=== PATIENT | male | born 1970 | race Caucasian/White ===

== ENCOUNTER 2018-03-11 17:43 | Inpatient (IN) | payer OTHER ==
[~2018-03-11] VITALS: Ht 177.8 cm; Wt 97.8 kg
--- NOTE | ~2018-03-11 | EKG ---
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 : 1970 Requested By: Solis Mendiola Order Number: [id number] MD: Aristides Boyle Measurements Intervals [place] Rate: 105 P: 31 GA: 148 QRS: 74 QRSD: 97 T: 23 QT: 341 QTc: 451 Interpretive Statements Sinus tachycardia Nonspecific ST segment abnormality No previous ECG available for comparison Electronically Signed On 03-12-2018 9:45:29 TYPING SECRETARY by Aristides Boyle [email or web address] <ELECTRONICALLY SIGNED> By: Aristides Boyle MD, [facility] 03/12/18 0945 [id number] Aristidse Boyle MD, FACC /EPI
[~2018-03-11 17:43] MED LIST: IBUPROFEN 800800 M1 PO; METFORMIN HCL500 MG PO; NORVASC10 MG PO; TRAZODONE HCL100 MG PO; ZESTRIL5 MG PO; ZOFRAN ODT4 MG PO; ZPAK PO
[2018-03-11 17:47] VITALS: BP 70/40
[2018-03-11 18:14] LABS: HEMATOCRIT 33.8 % (42.0-52.0); HEMOGLOBIN 11.8 gm/dL (14.0-18.0); MCHC 34.8 g/dL (28.0-37.0); MCV 92.1 fL (80.0-100.0); PLATELET COUNT 341 thou/uL (150-400); RBC 3.67 mil/uL (4.50-6.00); RDW 14.1 % (10.5-14.5); WBC 13.1 thou/uL (4.0-11.0)
[2018-03-11 18:22] LABS: ANION GAP 13 mmol/L (7-16); BUN 48 mg/dL (7-18); CALCIUM 9.5 mg/dL (8.5-10.1); CHLORIDE 98 mmol/L (98-107); CO2 26 mmol/L (21-32); CREATININE 2.8 mg/dL (0.7-1.3); GLUCOSE 53 mg/dL (74-106); SODIUM 137 mmol/L (136-145)
[2018-03-11 18:24] LABS: POTASSIUM 2.9 mmol/L (3.5-5.1)
[2018-03-11 18:31] LABS: ALBUMIN 3.7 g/dL (3.4-5.0); DIRECT BILIRUBIN < 0.1 mg/dL (<0.1-0.3); SGOT 23 U/L (15-37); SGPT 30 U/L (30-65); TOTAL BILIRUBIN 0.2 mg/dL (<0.1-1.0); TOTAL PROTEIN 7.4 g/dL (6.4-8.2); TROPONIN-I <0.06 ng/mL (<0.06)
[2018-03-11 19:02] LABS: ABSOLUTE NEUTROPHILS 3.9 thou/uL (1.4-8.2); ATYPICAL LYMPHS 2 %
[2018-03-11 19:48] LABS: URINE BILIRUBIN NEGATIVE (Negative); URINE BLOOD NEGATIVE (Negative); URINE CLARITY CLEAR; URINE COLOR YELLOW; URINE GLUCOSE-RANDOM* 2+ (Negative); URINE KETONES NEGATIVE (Negative); URINE LEUKOCYTES-REFLEX NEGATIVE (Negative); URINE NITRITE-REFLEX NEGATIVE (Negative); URINE PROTEIN (DIPSTICK) TRACE (Negative); URINE UROBILINOGEN 0.2 E.U./dl (0.2-1.0)
[2018-03-11 19:56] LABS: AMP/METHAMP Negative (Negative); BARBITURATES Negative (Negative); BENZODIAZEPINES POSITIVE (Negative); COCAINE Negative (Negative); METHADONE Negative (Negative); OPIATES Negative (Negative); PCP Negative (Negative)
[2018-03-11 20:45] VITALS: BP 90/45
[2018-03-11 21:19] VITALS: BP 97/47
[2018-03-11 21:32] VITALS: BP 93/48
[2018-03-11] MEDS ORDERED: LANTUS SUBQ (22:06)
[2018-03-11] MEDS ORDERED: HUMALOG100 UNIT/1 SUBQ ×2 (22:07→22:08)
[2018-03-11] MEDS ORDERED: METOPROLOL TAR100 MG PO (22:09)
[2018-03-11] MEDS ORDERED: NEURONTIN 400M400 M2 PO (22:10)
[2018-03-11] MEDS ORDERED: NEURONTIN 400400 M1 PO (22:10)
[2018-03-11 22:15] VITALS: BP 116/60
[2018-03-12] VITALS (7 sets, daily range): BP systolic 115–179; BP diastolic 64–104
[2018-03-12 06:44] LABS: HEMOGLOBIN 11.3 gm/dL (14.0-18.0); RDW 13.8 % (10.5-14.5); WBC 6.2 thou/uL (4.0-11.0)
[2018-03-12 06:45] LABS: CALCIUM 8.4 mg/dL (8.5-10.1); CREATININE 1.9 mg/dL (0.7-1.3)
[2018-03-12 06:52] LABS: POTASSIUM 5.5 mmol/L (3.5-5.1)
[2018-03-12 06:58] LABS: HEMATOCRIT 33.8 % (42.0-52.0); MCH 30.9 pg (26.0-34.0); MCHC 33.3 g/dL (28.0-37.0); MCV 92.8 fL (80.0-100.0); RBC 3.64 mil/uL (4.50-6.00)
[2018-03-13 00:25] VITALS: BP 137/90
[2018-03-13 01:10] LABS: GLYCOHEMOGLOBIN (HGB A1C) 7.4 % (4.8-5.6)
[2018-03-13 05:10] LABS: CALCIUM 8.5 mg/dL (8.5-10.1); CREATININE 1.3 mg/dL (0.7-1.3)
[2018-03-13 05:12] LABS: POTASSIUM 4.5 mmol/L (3.5-5.1)
[2018-03-13 05:18] VITALS: BP 171/107
[2018-03-13 08:26] VITALS: BP 175/106
[2018-03-13 10:28] VITALS: BP 175/106
[2018-03-13 10:45] VITALS: BP 175/106
== END 2018-03-13 10:43 | disposition home or self-care (01) | DRG 639 ==
LOC: ER 17:43 → EROBS 20:27 → 3W 20:27
PROVIDERS: Emergency Medicine; Nurse Practitioner Family
DX: E11.649 Type 2 diabetes mellitus with hypoglycemia without coma (principal); F10.129 Alcohol abuse with intoxication, unspecified; N17.9 Acute kidney failure, unspecified; Y90.6 Blood alcohol level of 120-199 mg/100 ml; I10 Essential (primary) hypertension; F17.210 Nicotine dependence, cigarettes, uncomplicated; I95.9 Hypotension, unspecified; E87.6 Hypokalemia; E86.0 Dehydration; E83.42 Hypomagnesemia; Z71.6 Tobacco abuse counseling; Z71.41 Alcohol abuse counseling and surveillance of alcoholic; Z79.899 Other long term (current) drug therapy
CPT/HCPCS: 10879

== ENCOUNTER 2018-03-20 17:36 | Emergency (ER) | payer OTHER ==
[~2018-03-20] VITALS: Ht 177.8 cm; Wt 87.1 kg
[~2018-03-20 17:36] MED LIST changes: +HUMALOG100 UNIT/1 SUBQ; +LANTUS SUBQ; +METOPROLOL TAR100 MG PO; +NEURONTIN 400400 M1 PO; +NEURONTIN 400M400 M2 PO
[2018-03-20] MEDS ORDERED: NORCO 5-325 TA1 EACH PO (19:36)
[2018-03-20 20:01] VITALS: BP 142/78
== END 2018-03-20 20:01 | disposition home or self-care (01) ==
LOC: ER 17:36
DX: S62.101A Fracture of unspecified carpal bone, right wrist, initial encounter for closed fracture (principal); S20.211A Contusion of right front wall of thorax, initial encounter; I10 Essential (primary) hypertension; E11.9 Type 2 diabetes mellitus without complications; Z79.4 Long term (current) use of insulin; W00.0XXA Fall on same level due to ice and snow, initial encounter; Y92.89 Other specified places as the place of occurrence of the external cause; Y93.89 Activity, other specified; Y99.8 Other external cause status

== ENCOUNTER 2018-03-26 16:15 | Emergency (ER) | payer OTHER ==
[~2018-03-26] VITALS: Ht 177.8 cm; Wt 87.1 kg
[~2018-03-26 16:15] MED LIST changes: +NORCO 5-325 TA1 EACH PO
[2018-03-26] MEDS ORDERED: ZANAFLEX4 MG PO (16:37)
[2018-03-26] MEDS ORDERED: LIDOCAINE1 EACH TRANSDERM (17:14)
[2018-03-26] MEDS ORDERED: HYDROCODONE-AP1 EAC6 PO (17:14)
[2018-03-26 17:31] VITALS: BP 130/73
== END 2018-03-26 17:39 | disposition home or self-care (01) ==
LOC: ER 16:15
DX: S20.211A Contusion of right front wall of thorax, initial encounter (principal); F17.200 Nicotine dependence, unspecified, uncomplicated; I10 Essential (primary) hypertension; E11.9 Type 2 diabetes mellitus without complications; Z79.4 Long term (current) use of insulin; X50.1XXA Overexertion from prolonged static or awkward postures, initial encounter; Y92.89 Other specified places as the place of occurrence of the external cause; Y93.89 Activity, other specified; Y99.8 Other external cause status

== ENCOUNTER 2018-04-07 15:24 | Emergency (ER) | payer OTHER ==
[~2018-04-07] VITALS: Ht 177.8 cm; Wt 87.1 kg
[~2018-04-07 15:24] MED LIST changes: +HYDROCODONE-AP1 EAC6 PO; +LIDOCAINE1 EACH TRANSDERM; +ZANAFLEX4 MG PO
[2018-04-07 16:06] LABS: CALCIUM 9.4 mg/dL (8.5-10.1); CREATININE 1.5 mg/dL (0.7-1.3); POTASSIUM 4.4 mmol/L (3.5-5.1)
[2018-04-07 16:07] LABS: HEMATOCRIT 36.4 % (42.0-52.0); HEMOGLOBIN 12.7 gm/dL (14.0-18.0); MCHC 34.8 g/dL (28.0-37.0); MCV 89.1 fL (80.0-100.0); RBC 4.09 mil/uL (4.50-6.00); RDW 13.6 % (10.5-14.5); WBC 18.1 thou/uL (4.0-11.0)
[2018-04-07 16:36] LABS: PLATELET COUNT 419 thou/uL (150-400)
[2018-04-07 16:38] LABS: ABSOLUTE NEUTROPHILS 10.3 thou/uL (1.4-8.2); ANISOCYTOSIS 1+
[2018-04-07] MEDS ORDERED: NORFLEX100 MG PO (17:22)
[2018-04-07] MEDS ORDERED: ULTRAM 50MG TAB50 MG PO (17:22)
[2018-04-07 18:07] VITALS: BP 132/80
== END 2018-04-07 18:09 | disposition home or self-care (01) ==
LOC: ER 15:24
PROVIDERS: Emergency Medicine
DX: S40.012A Contusion of left shoulder, initial encounter (principal); S30.0XXA Contusion of lower back and pelvis, initial encounter; F10.129 Alcohol abuse with intoxication, unspecified; I10 Essential (primary) hypertension; E11.9 Type 2 diabetes mellitus without complications; Z79.4 Long term (current) use of insulin; W11.XXXA Fall on and from ladder, initial encounter; Y93.89 Activity, other specified; Y92.89 Other specified places as the place of occurrence of the external cause; Y99.8 Other external cause status; Z88.6 Allergy status to analgesic agent; Y90.6 Blood alcohol level of 120-199 mg/100 ml

== ENCOUNTER 2019-01-04 19:26 | Emergency (ER) | payer OTHER ==
[~2019-01-04] VITALS: Ht 177.8 cm; Wt 86.2 kg
[~2019-01-04 19:26] MED LIST changes: +NORFLEX100 MG PO; +ULTRAM 50MG TAB50 MG PO
[2019-01-04] MEDS ORDERED: PREGABALIN50 MG PO (19:38)
[2019-01-04 20:50] LABS: ABSOLUTE NEUTROPHILS 3.7 thou/uL (1.4-8.2); BASOPHILS 0.8 % (0.0-2.0); HEMATOCRIT 44.6 % (42.0-52.0); HEMOGLOBIN 15.1 gm/dL (14.0-18.0); LYMPHOCYTES 42.9 % (24.0-44.0); MCH 29.5 pg (26.0-34.0); MCHC 33.8 g/dL (28.0-37.0); MCV 87.4 fL (80.0-100.0); MONOCYTES 5.2 % (1.0-8.0); PLATELET COUNT 360 thou/uL (150-400); POLYS 49.1 % (36.0-66.0); RBC 5.11 mil/uL (4.50-6.00); RDW 13.7 % (10.5-14.5); WBC 7.6 thou/uL (4.0-11.0)
[2019-01-04 20:50] LABS: URINE BILIRUBIN NEGATIVE (Negative); URINE BLOOD NEGATIVE (Negative); URINE CLARITY CLEAR; URINE COLOR YELLOW; URINE GLUCOSE-RANDOM* 3+ (Negative); URINE KETONES TRACE (Negative); URINE LEUKOCYTES NEGATIVE (Negative); URINE NITRITE NEGATIVE (Negative); URINE PROTEIN (DIPSTICK) 2+ (Negative); URINE SPECIFIC GRAVITY 1.025 (1.005-1.035); URINE UROBILINOGEN 0.2 E.U./dl (0.2-1.0)
[2019-01-04 20:58] LABS: BACTERIA None Seen /HPF (None Seen); CRYSTALS None Seen /LPF (None Seen); HYALINE CASTS 4-10 Moderate /LPF (None Seen); MUCUS >6 Heavy strn/LPF (None Seen); SQUAMOUS 0-3 Few /LPF (0-3); URINE RBC None Seen /HPF (0-2); URINE WBC 0-5 Rare /HPF (0-5)
[2019-01-04 21:00] LABS: ANION GAP 18 mmol/L (7-16); BUN 21 mg/dL (7-18); CALCIUM 10.1 mg/dL (8.5-10.1); CHLORIDE 96 mmol/L (98-107); CO2 20 mmol/L (21-32); CREATININE 1.1 mg/dL (0.7-1.3); GLUCOSE 421 mg/dL (74-106); POTASSIUM 4.6 mmol/L (3.5-5.1); SODIUM 134 mmol/L (136-145)
[2019-01-04 21:04] LABS: DIRECT BILIRUBIN < 0.1 mg/dL (<0.1-0.3); LIPASE 322 U/L (73-393); TOTAL BILIRUBIN 0.3 mg/dL (<0.1-1.0); TOTAL PROTEIN 8.2 g/dL (6.4-8.2)
[2019-01-04 21:16] LABS: SGOT 43 U/L (15-37); SGPT 36 U/L (30-65)
[2019-01-04 23:58] LABS: CREATININE 0.9 mg/dL (0.7-1.3); POTASSIUM 3.8 mmol/L (3.5-5.1)
[2019-01-05 00:39] VITALS: BP 113/67
--- NOTE | 2019-01-05 08:12 | EKG ---
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[facility] 1970 Requested By: Ronan Boogie Order Number: [id number] MD: Benito Kamara Measurements Intervals [place] Rate: 99 P: 18 MT: 151 QRS: 70 QRSD: 93 T: 13 QT: 346 QTc: 444 Interpretive Statements Sinus rhythm Consider left ventricular hypertrophy ST elev, probable normal early repol pattern Compared to ECG 03/11/2018 18:37:04 Sinus tachycardia no longer present ST (T wave) deviation still present Electronically Signed On 01-05-2019 8:12:24 CDT by Benito Kamara [email or web address] <ELECTRONICALLY SIGNED> By: Benito Kamara MD 01/05/19811 26 26 Benito Kamara MD /EPI
== END 2019-01-05 00:40 | disposition home or self-care (01) ==
LOC: ER 19:26
PROVIDERS: Nurse Practitioner
DX: E11.10 Type 2 diabetes mellitus with ketoacidosis without coma (principal); E11.65 Type 2 diabetes mellitus with hyperglycemia; I10 Essential (primary) hypertension; E11.40 Type 2 diabetes mellitus with diabetic neuropathy, unspecified; F17.210 Nicotine dependence, cigarettes, uncomplicated; Z98.890 Other specified postprocedural states; Z79.4 Long term (current) use of insulin; Z88.6 Allergy status to analgesic agent

== ENCOUNTER 2020-10-01 14:35 | Inpatient (IN) | payer OTHER ==
[~2020-10-01] VITALS: Ht 177.8 cm; Wt 82.6 kg
[~2020-10-01 14:35] MED LIST changes: +PREGABALIN50 MG PO
[2020-10-01 14:36] VITALS: BP 151/97
[2020-10-01 15:48] LABS: EOSINOPHILS 0.1 % (0.0-3.0); HEMOGLOBIN 17.1 gm/dL (14.0-18.0); RDW 14.4 % (10.5-14.5)
[2020-10-01 15:50] LABS: ABSOLUTE NEUTROPHILS 12.9 thou/uL (1.4-8.2); HEMATOCRIT 50.2 % (42.0-52.0); LYMPHOCYTES 13.5 % (24.0-44.0); MCH 28.4 pg (26.0-34.0); MCV 83.7 fL (80.0-100.0); MONOCYTES 4.7 % (1.0-8.0); PLATELET COUNT 487 thou/uL (150-400); POLYS 80.7 % (36.0-66.0)
[2020-10-01 16:05] LABS: CALCIUM 10.5 mg/dL (8.5-10.1); CREATININE 1.3 mg/dL (0.7-1.3); POTASSIUM 3.7 mmol/L (3.5-5.1)
[2020-10-01 16:10] LABS: ALBUMIN 4.6 g/dL (3.4-5.0); TOTAL BILIRUBIN 0.4 mg/dL (0.2-1.0)
[2020-10-01] MEDS ORDERED: DULOXETINE HCL60 MG PO (18:07)
[2020-10-01] MEDS ORDERED: DICLOFENAC SOD100 G1 TOP (18:07)
[2020-10-01] MEDS ORDERED: FLINTSTONES1 EAC1 PO (18:08)
[2020-10-01] MEDS ORDERED: IBUPROFEN 400400 M1 PO (18:08)
[2020-10-01] MEDS ORDERED: HYDROXYZINE HCL50 MG PO (18:08)
[2020-10-01] MEDS ORDERED: LYRICA150 MG PO (18:09)
[2020-10-01] MEDS ORDERED: LANTUS SUBQ (18:09)
[2020-10-01] MEDS ORDERED: MELATONIN10 M3 PO (18:09)
[2020-10-01] MEDS ORDERED: ONDANSETRON ODT4 MG PO (18:10)
[2020-10-01] MEDS ORDERED: NOVOLOG100 UNIT/1 SUBQ (18:10)
[2020-10-01] MEDS ORDERED: METFORMIN HCL500 M3 PO (18:10)
[2020-10-01] MEDS ORDERED: SILDENAFIL CITR25 MG PO (18:11)
[2020-10-01] MEDS ORDERED: PROTONIX40 M2 PO (18:11)
[2020-10-01] MEDS ORDERED: CRESTOR40 MG PO (18:11)
[2020-10-01] MEDS ORDERED: TERBINAFINE HC250 MG PO (18:12)
[2020-10-01 19:26] LABS: URINE BILIRUBIN NEGATIVE (Negative); URINE BLOOD 1+ (Negative); URINE CLARITY CLEAR; URINE COLOR YELLOW; URINE GLUCOSE-RANDOM* 2+ (Negative); URINE KETONES TRACE (Negative); URINE LEUKOCYTES-REFLEX NEGATIVE (Negative); URINE NITRITE-REFLEX NEGATIVE (Negative); URINE PROTEIN (DIPSTICK) 3+ (Negative); URINE UROBILINOGEN 0.2 E.U./dl (0.2-1.0)
[2020-10-01 19:51] LABS: CASTS None Seen /LPF (None Seen); SQUAMOUS 0-3 Few /LPF (0-3); URINE RBC 1-2 Rare /HPF (NONE SEEN); URINE WBC-REFLEX None Seen /HPF (0-5)
[2020-10-01 19:52] LABS: BACTERIA-REFLEX None Seen /HPF (None Seen); CRYSTALS None Seen /LPF (None Seen)
[2020-10-01 20:17] VITALS: BP 104/50
[2020-10-01 20:53] VITALS: BP 119/65
[2020-10-01 21:24] VITALS: BP 125/81
[2020-10-02 04:47] LABS: HEMATOCRIT 41.4 % (42.0-52.0); MCH 29.2 pg (26.0-34.0); MCHC 34.7 g/dL (28.0-37.0); MCV 84.1 fL (80.0-100.0); RBC 4.92 mil/uL (4.50-6.00); RDW 14.1 % (10.5-14.5); WBC 8.9 thou/uL (4.0-11.0)
[2020-10-02 04:53] LABS: HEMOGLOBIN 14.4 gm/dL (14.0-18.0)
--- NOTE | 2020-10-02 06:22 | NUR ---
NEW ADMISSION FOR ABD PAIN/NAUSEA/ BLOODY STOOLS. NO STOOL THIS SHIFT. PAIN CONTROLLED THIS SHIFT. FALL PRECAUTION IN PLACE.PATIENT IN BED ASLEEP AT THIS TIME BREATHING REGULAR AND UNLABOURED.
[2020-10-02 16:45] VITALS: BP 149/79
[2020-10-02 19:53] VITALS: BP 193/107
[2020-10-03 04:38] VITALS: BP 150/98
--- NOTE | 2020-10-03 06:00 | NUR ---
Pt. rested quietly a intervals during the night when checked on during frequent rounds. He c/o abdominal pain and was medicated (see emar) with some relief noted. Antinausea med also given with some relief (see emar). Up ad nely. Bowel prep effective and pt. stooling without difficulty.
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
[2020-10-03 09:48] VITALS: BP 156/94
[2020-10-03 10:20] VITALS: BP 156/94
[2020-10-03] MEDS ORDERED: LISINOPRIL10 MG PO (13:03)
[2020-10-03] MEDS ORDERED: FLAGYL500 M1 PO (13:06)
[2020-10-03] MEDS ORDERED: CIPRO500 M1 PO (13:06)
[2020-10-03] MEDS ORDERED: NORCO5 PO (13:10)
[2020-10-03 13:31] VITALS: BP 156/94
[2020-10-03 13:36] VITALS: BP 156/94
--- NOTE | 2020-10-03 13:43 | NUR ---
PT ADMITTED RELATED TO NAUSEA/VOMIT AND BLOODY STOOLS. CM REVIEWED CHART AND SPOKE WITH CARE TEAM. CM MET WITH PT AT BEDSIDE THIS DAY. PT APPEARED TO BE A&O X4. CM ROLE INTRODUCED. PT INDICATED HE LIVES IN A SECOND FLOOR APARTMENT ALONE WITH 35 STEPS TO ENTER. 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 PT INDICATED HE PLANS TO RETURN HOME ONCE MEDICALLY STABLE. PT HAD COLONOSCOPY THIS AM. CARE TEAM INDICATED THAT PT IS MEDICALLY STABLE TO DC HOME THIS DAY. PT PROVIDED CAB VOUCHER. CM INDICATED PT'S DESIRE TO GO TO HIS PHARMACY FIRST PT IS AWARE THAT IT'S [facility]. NO OTHER CM INTERVENTION INDICATED. CASE CLOSED.
--- NOTE | 2020-10-03 14:20 | NUR ---
Assumed pt care at 7am.Pt in room getting ready to leave for colonoscopyy in gi lab.Assessment completed.vss.Pt left per cart at 0710 and returned in stable condition around 0840. Clear liq given and well tolerated. Post op vss. Diet advanced per Dr Oneill.Regular diet given at lunch. Dr Stewart rounded on pt and dc order noted. Dc summary complile and reviewed with pt.Saline lock dc'd.At 1420,pt dc home ambulatory after given cab voucher as provided by carlos.
== END 2020-10-03 14:20 | disposition home or self-care (01) | DRG 872 ==
LOC: ER 14:35 → 4W 19:33 → EROBS 19:33 → 4W 20:54
PROVIDERS: Emergency Medicine; Nurse Practitioner Family; ADMIT Internal Medicine; ATTEND Internal Medicine
PROC: 0DBK8ZZ Excision of Ascending Colon, Via Natural or Artificial Opening Endoscopic (ICD-10-PCS; principal; 2020-10-03)
PROC: 0DBN8ZZ Excision of Sigmoid Colon, Via Natural or Artificial Opening Endoscopic (ICD-10-PCS; principal; 2020-10-03)
DX: A41.9 Sepsis, unspecified organism (principal); K92.1 Melena; I10 Essential (primary) hypertension; K66.0 Peritoneal adhesions (postprocedural) (postinfection); K62.89 Other specified diseases of anus and rectum; E78.5 Hyperlipidemia, unspecified; E11.42 Type 2 diabetes mellitus with diabetic polyneuropathy; R10.9 Unspecified abdominal pain; G89.29 Other chronic pain; F17.210 Nicotine dependence, cigarettes, uncomplicated; Z20.822 Contact with and (suspected) exposure to COVID-19; Z60.2 Problems related to living alone; F12.90 Cannabis use, unspecified, uncomplicated; F19.10 Other psychoactive substance abuse, uncomplicated; K63.5 Polyp of colon; Z71.6 Tobacco abuse counseling; Z80.0 Family history of malignant neoplasm of digestive organs
CPT/HCPCS: 10040; 62110; 62900; 70005

== ENCOUNTER 2020-10-16 10:03 | Emergency (ER) | payer OTHER ==
[~2020-10-16] VITALS: Ht 177.8 cm; Wt 83.9 kg
[~2020-10-16 10:03] MED LIST changes: +CIPRO500 M1 PO; +CRESTOR40 MG PO; +DICLOFENAC SOD100 G1 TOP; +DULOXETINE HCL60 MG PO; +FLAGYL500 M1 PO; +FLINTSTONES1 EAC1 PO; +HYDROXYZINE HCL50 MG PO; +IBUPROFEN 400400 M1 PO; +LISINOPRIL10 MG PO; +LYRICA150 MG PO; +MELATONIN10 M3 PO; +METFORMIN HCL500 M3 PO; +NORCO5 PO; +NOVOLOG100 UNIT/1 SUBQ; +ONDANSETRON ODT4 MG PO; +PROTONIX40 M2 PO; +SILDENAFIL CITR25 MG PO; +TERBINAFINE HC250 MG PO
[2020-10-16 10:39] LABS: ABSOLUTE NEUTROPHILS 2.6 thou/uL (1.4-8.2); BASOPHILS 0.8 % (0.0-2.0); EOSINOPHILS 4.8 % (0.0-3.0); HEMATOCRIT 45.9 % (42.0-52.0); HEMOGLOBIN 15.6 gm/dL (14.0-18.0); LYMPHOCYTES 26.2 % (24.0-44.0); MCH 28.9 pg (26.0-34.0); MCV 85.2 fL (80.0-100.0); MONOCYTES 12.2 % (1.0-8.0); PLATELET COUNT 246 thou/uL (150-400); RBC 5.39 mil/uL (4.50-6.00); RDW 14.2 % (10.5-14.5); WBC 4.7 thou/uL (4.0-11.0)
[2020-10-16 10:49] LABS: ANION GAP 11 mmol/L (7-16); BUN 18 mg/dL (7-18); CALCIUM 8.8 mg/dL (8.5-10.1); CHLORIDE 100 mmol/L (98-107); CO2 24 mmol/L (21-32); CREATININE 1.1 mg/dL (0.7-1.3); GLUCOSE 329 mg/dL (74-106); POTASSIUM 4.7 mmol/L (3.5-5.1); SODIUM 135 mmol/L (136-145)
[2020-10-16 11:00] LABS: ALBUMIN 3.7 g/dL (3.4-5.0); MAGNESIUM 1.6 mg/dL (1.8-2.4); SGOT 18 U/L (15-37); SGPT 21 U/L (16-63); TOTAL BILIRUBIN 0.3 mg/dL (0.2-1.0); TOTAL PROTEIN 7.4 g/dL (6.4-8.2); TROPONIN-I <0.06 ng/mL (<0.06)
--- NOTE | 2020-10-16 11:31 | EKG ---
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 : 1970 Requested By: Oleg Leroy Order Number: [id number] MD: Nikos Stockton Measurements Intervals [place] Rate: 106 P: 26 VT: 149 QRS: 79 QRSD: 88 T: 22 QT: 336 QTc: 447 Interpretive Statements Sinus tachycardia Anterior infarct, old Baseline wander in lead(s) I,II,aVR,aVL,V5,V6 Compared to ECG 01/04/2019 21:27:41 Myocardial infarct finding now present Sinus rhythm no longer present ST (T wave) deviation no longer present Electronically Signed On 10-16-2020 11:31:12 CDT by Nikos Stockton [email or web address] <ELECTRONICALLY SIGNED> By: Nikos Stockton MD, [facility] 10/16/20 1131 1017 [id number] Nikos Stockton MD, [facility] /EPI
[2020-10-16] MEDS ORDERED: NORVASC5 MG PO (12:54)
[2020-10-16] MEDS ORDERED: NORCO7.5 PO (12:56)
[2020-10-16 12:59] VITALS: BP 166/94
== END 2020-10-16 12:57 | disposition home or self-care (01) ==
LOC: ER 10:03
PROVIDERS: Emergency Medicine
DX: S20.211A Contusion of right front wall of thorax, initial encounter (principal); F10.10 Alcohol abuse, uncomplicated; I10 Essential (primary) hypertension; E11.9 Type 2 diabetes mellitus without complications; F17.210 Nicotine dependence, cigarettes, uncomplicated; Z88.6 Allergy status to analgesic agent; Z98.890 Other specified postprocedural states; W10.8XXA Fall (on) (from) other stairs and steps, initial encounter; Y93.89 Activity, other specified; Y92.89 Other specified places as the place of occurrence of the external cause; Y99.8 Other external cause status

== ENCOUNTER 2020-11-23 16:43 | Emergency (ER) | payer OTHER ==
[~2020-11-23] VITALS: Ht 177.8 cm; Wt 83.5 kg
[~2020-11-23 16:43] MED LIST changes: +AMLODIPINE BESY10 MG PO; +CYCLOBENZAPRINE5 MG PO; +HYDROCODON-ACE1 EAC7 PO; +LANTUS100 UNIT/M SUBQ; +NORCO7.5 PO; +NORVASC5 MG PO; +ZOFRAN ODT4 MG DISSOLVE
[2020-11-23] MEDS ORDERED: NORCO5 PO ×2 (20:32→20:46)
[2020-11-23 20:36] VITALS: BP 149/100
[2020-11-23] MEDS ORDERED: MORPHINE SULFAT15 M4 PO (22:07)
== END 2020-11-23 20:37 | disposition home or self-care (01) ==
LOC: ER 16:43
DX: M54.9 Dorsalgia, unspecified (principal); I10 Essential (primary) hypertension; E11.9 Type 2 diabetes mellitus without complications; F17.210 Nicotine dependence, cigarettes, uncomplicated; Z79.2 Long term (current) use of antibiotics; Z79.4 Long term (current) use of insulin; Z79.899 Other long term (current) drug therapy; Z88.6 Allergy status to analgesic agent

== ENCOUNTER 2020-12-26 16:01 | Emergency (ER) | payer OTHER ==
[~2020-12-26] VITALS: Ht 177.8 cm; Wt 83.9 kg
[~2020-12-26 16:01] MED LIST changes: +MORPHINE SULFAT15 M4 PO
[2020-12-26 16:44] LABS: ABSOLUTE NEUTROPHILS 5.1 thou/uL (1.4-8.2); BASOPHILS 0.9 % (0.0-2.0); EOSINOPHILS 1.3 % (0.0-3.0); HEMATOCRIT 47.4 % (42.0-52.0); HEMOGLOBIN 15.8 gm/dL (14.0-18.0); LYMPHOCYTES 27.3 % (24.0-44.0); MCH 28.5 pg (26.0-34.0); MCHC 33.3 g/dL (28.0-37.0); MCV 85.5 fL (80.0-100.0); MONOCYTES 12.6 % (1.0-8.0); PLATELET COUNT 371 thou/uL (150-400); POLYS 57.9 % (36.0-66.0); RBC 5.55 mil/uL (4.50-6.00); RDW 13.8 % (10.5-14.5); WBC 8.9 thou/uL (4.0-11.0)
[2020-12-26 16:49] LABS: ANION GAP 13 mmol/L (7-16); BUN 16 mg/dL (7-18); CALCIUM 8.9 mg/dL (8.5-10.1); CHLORIDE 98 mmol/L (98-107); CO2 26 mmol/L (21-32); CREATININE 1.2 mg/dL (0.7-1.3); GLUCOSE 292 mg/dL (74-106); POTASSIUM 4.1 mmol/L (3.5-5.1); SODIUM 137 mmol/L (136-145)
[2020-12-26 16:57] LABS: DIRECT BILIRUBIN < 0.1 mg/dL (<0.1-0.2); SGOT 48 U/L (15-37); SGPT 45 U/L (16-63); TOTAL BILIRUBIN 0.3 mg/dL (0.2-1.0); TOTAL PROTEIN 7.8 g/dL (6.4-8.2)
[2020-12-26 17:33] VITALS: BP 129/82
[2020-12-26] MEDS ORDERED: NORCO5 PO ×2 (18:53→19:14)
== END 2020-12-26 22:07 | disposition home or self-care (01) ==
LOC: ER 16:01
PROVIDERS: Emergency Medicine
DX: S20.211A Contusion of right front wall of thorax, initial encounter (principal); S30.1XXA Contusion of abdominal wall, initial encounter; F10.10 Alcohol abuse, uncomplicated; I10 Essential (primary) hypertension; E11.9 Type 2 diabetes mellitus without complications; F17.210 Nicotine dependence, cigarettes, uncomplicated; F12.90 Cannabis use, unspecified, uncomplicated; Z98.890 Other specified postprocedural states; Z79.899 Other long term (current) drug therapy; Z79.4 Long term (current) use of insulin; Z79.891 Long term (current) use of opiate analgesic; Z88.8 Allergy status to other drugs, medicaments and biological substances; V23.4XXA Motorcycle driver injured in collision with car, pick-up truck or van in traffic accident, initial encounter; Y93.55 Activity, bike riding; Y92.89 Other specified places as the place of occurrence of the external cause; Y99.8 Other external cause status

== ENCOUNTER 2021-01-16 15:23 | Inpatient (IN) | payer OTHER ==
[~2021-01-16] VITALS: Ht 177.8 cm; Wt 83.9 kg
[2021-01-16 15:26] VITALS: BP 125/75
[2021-01-16] MEDS ORDERED: TERBINAFINE HC250 MG PO (15:35)
[2021-01-16 18:40] LABS: ABSOLUTE NEUTROPHILS 8.4 thou/uL (1.4-8.2); BASOPHILS 0.8 % (0.0-2.0); HEMATOCRIT 43.6 % (42.0-52.0); HEMOGLOBIN 14.5 gm/dL (14.0-18.0); LYMPHOCYTES 20.6 % (24.0-44.0); MCH 28.8 pg (26.0-34.0); MCHC 33.2 g/dL (28.0-37.0); MCV 86.6 fL (80.0-100.0); PLATELET COUNT 388 thou/uL (150-400); POLYS 70.6 % (36.0-66.0); RBC 5.04 mil/uL (4.50-6.00); RDW 13.8 % (10.5-14.5)
[2021-01-16 18:41] VITALS: BP 132/77
[2021-01-16 18:55] LABS: CALCIUM 9.7 mg/dL (8.5-10.1); CREATININE 1.2 mg/dL (0.7-1.3)
[2021-01-16 19:01] LABS: ALBUMIN 3.6 g/dL (3.4-5.0); TOTAL BILIRUBIN 0.3 mg/dL (0.2-1.0); TOTAL PROTEIN 7.5 g/dL (6.4-8.2)
[2021-01-16 19:10] LABS: POTASSIUM 4.8 mmol/L (3.5-5.1)
[2021-01-16 20:49] VITALS: BP 147/86
--- NOTE | 2021-01-16 23:57 | NUR ---
PT ADMITTED TO THE UNIT AT 1920. PT IS A/O X4 AND IS UP WITH ASSISTANCE DUE TO REPORTED PAIN LEVEL BY PT. C/O PAIN TO LOWER BACK. 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 ORDERS GIVEN. ADMISSION COMPLETE.FALL PRECAUTIONS IN PLACE, CALL LIGHT IS WITHIN REACH
[2021-01-17] VITALS (8 sets, daily range): BP systolic 125–156; BP diastolic 78–101
--- NOTE | 2021-01-17 16:59 | NUR ---
PT ASSESSED AT START OF SHIFT. PT IN MUCH BACK PAIN AND LT HAND/THUMB PAIN. MEDS GIVEN W/ SOME RELIEF. DR. WETZEL IN TO SEE PT RE KYPHOPLASTY THIS AFTERNOON. PT NPO EXCEPT PO MEDS W/ SIP WATER. VOIDING WELL. LANTUS ORDERED BUT NOT STARTED PT NPO AND HAS ALREADY DROPPED 100 POINTS AFTER NOVOLOG THIS AM. PT TO IR FOR KYPHOPLASTY AT 1625.
--- NOTE | 2021-01-17 18:30 | NUR ---
PT BACK FROM KYPHOPLASTY AMD ORDER TO LIE FLAT UNTIL 1900. STATES HE FEELS HIS PAIN IS WORSE THAN BEFORE PROCEDURE. MORPINE GIVEN W/ SOME RELIEF.
--- NOTE | 2021-01-18 00:08 | NUR ---
ALERT AND ORIENTED. VOIDING PER URINAL. LAYING FLAT. LOWER BACK LOOKS OKAY-NO HEMATOMA. AFEBRILE. ASKED FOR TURKEY SANDWICH. NOT IN DISTRESS.
[2021-01-18 03:20] VITALS: BP 144/94
[2021-01-18 07:14] VITALS: BP 177/108
[2021-01-18 07:16] VITALS: BP 179/103
--- NOTE | 2021-01-18 10:05 | NUR ---
PATIENT ALERT AND ORIENTED X4. UP WITH JUST STANDBY ASSIST. C/O PAIN, MED GIVEN. SLEPT MOST OF NIGHT.
--- NOTE | 2021-01-18 11:03 | NUR ---
Assumed care of pt at 0700. Pt a&ox4. C/o back pain. Prn pain medications amdministered. Pt worked with physical therapy this am. Unable to do steps today. Will not be discharging to home today. Call light within reach. Fall precuations in place. Will continue to monitor.
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
[2021-01-18 15:40] VITALS: BP 115/82
[2021-01-18 19:45] VITALS: BP 152/82
--- NOTE | 2021-01-19 05:34 | NUR ---
ASSUMED CARE AT 1900, PT SLEPT INTERMITTENTLY, REQUESTED FOR PAIN MEDICATION SAM 4HRS AND NEEDED. PAIN AGGRAVATED WITH MOVEMENT, AWAITING TO BE INFORMED ABOUT D/C PLAN, COMPLIANT OF TX TOLARATED WELL NO ADVERSE REACTION NOTED. WILL CONTINUE TO MONITOR.
[2021-01-19 08:21] VITALS: BP 133/83
--- NOTE | 2021-01-19 09:43 | NUR ---
Assumed care of pt at 0700. Pt a&ox4. C/o back pain. Prn pain medications administered. Up SBA with walker and gait-belt. Call light within reach. Fall precautions in place. Will continue to monitor.
[2021-01-19 12:24] VITALS: BP 137/92
--- NOTE | 2021-01-19 12:29 | NUR ---
WAS NOTIFIED BY DULCE DONALDSON THAT IS WANTING TO DC PT TODAY WITH HH. PT ONLY HAS [employer] INSURANCE AND WOULD ONLY QUALIFY FOR A COUPLE NURSING VISITS. HE SPOKE WITH HOSPITIALIST AND SHE WILL DC TOMORROW AND SEE IF WE CAN ARRANGE A COUPLE OF NURSING VISITS AT MS. PUT A CALL INTO [facility] TO SEE IF THEY CAN SEE PT AFTER DC.
[2021-01-19 13:49] VITALS: BP 137/92
[2021-01-19 16:56] VITALS: BP 133/86
[2021-01-19 19:53] VITALS: BP 135/103
[2021-01-20 00:10] VITALS: BP 124/79
--- NOTE | 2021-01-20 02:59 | NUR ---
PT IS A/O X4 AND IS ON ROOM AIR. VSS. AFEBRILE. MEDICATIONS GIVEN PER MAR. PT C/O BACK PAIN. PRN PAIN MEDICATION GIVEN DIRECTED. FALL PRECAUTIONS IN PLACE, CALL LIGHT IS WITHIN REACH
[2021-01-20 04:20] VITALS: BP 112/74
[2021-01-20 07:44] VITALS: BP 133/80
[2021-01-20 08:16] VITALS: BP 133/80
[2021-01-20] MEDS ORDERED: HYDROCODON-ACE1 EAC7 PO (10:02)
--- NOTE | 2021-01-20 10:44 | NUR ---
ASSUMED PT CARE THIS AM. PT IS ALERT & ORIENTED X4. REMOVED IV ON RAC. PT IS UP WITH ASSIST X1 WITH WALKER AND USES URINAL. PT C/O OF CONSTIPATION AND GIVEN MIRALAX PER PT REQUEST. PT IS ACCUCHECK ACHS. PT IS ON ROOM AIR. PT C/O OF PAIN AND GIVEN PO PAIN MEDS THIS AM. EDUCATED AND INFORMED PT ABOUT DC ORDERS SUCH HH AND WHEN TO FOLLOW UP WITH GIVEN PAIN MED SCRIPT. 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 WILL CONTINUE TO MONITOR PT. FOLLOW POC.
== END 2021-01-20 12:12 | disposition home or self-care (01) | DRG 517 ==
LOC: ER 15:23 → EROBS 18:53 → 4S 18:53
PROVIDERS: Physician Assistant; ADMIT Hospitalist; ATTEND Hospitalist
PROC: 0QS03ZZ Reposition Lumbar Vertebra, Percutaneous Approach (ICD-10-PCS; principal; 2021-01-17)
PROC: 0QU03JZ Supplement Lumbar Vertebra with Synthetic Substitute, Percutaneous Approach (ICD-10-PCS; principal; 2021-01-17)
DX: S32.028A Other fracture of second lumbar vertebra, initial encounter for closed fracture (principal); F12.90 Cannabis use, unspecified, uncomplicated; E78.5 Hyperlipidemia, unspecified; E11.42 Type 2 diabetes mellitus with diabetic polyneuropathy; S32.039A Unspecified fracture of third lumbar vertebra, initial encounter for closed fracture; Z20.822 Contact with and (suspected) exposure to COVID-19; G89.29 Other chronic pain; S32.029A Unspecified fracture of second lumbar vertebra, initial encounter for closed fracture; Z79.899 Other long term (current) drug therapy; Z23 Encounter for immunization; Z83.3 Family history of diabetes mellitus; Z71.6 Tobacco abuse counseling; W18.39XA Other fall on same level, initial encounter; Y93.89 Activity, other specified; Y92.89 Other specified places as the place of occurrence of the external cause; Y99.8 Other external cause status
CPT/HCPCS: 10195